=== PATIENT | male | born 1965 | race African-American/Black ===

== ENCOUNTER 2021-12-25 18:52 | Emergency (ER) | payer OTHER, SELFPAY ==
[2021-12-25 19:26] VITALS: BP 158/120; BP 172/68; PULSE 113; PULSE 126; RESP 18; TEMP 36.9; O2SAT 94; O2SAT 97; BMI 32.5
[2021-12-25 19:30] VITALS: PULSE 113
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
[2021-12-25 20:17] VITALS: BP 158/112; PULSE 94; RESP 16; TEMP 36.6; O2SAT 99
[2021-12-25] MEDS: lisinopriL 20 MG TABLET PO (20:28)
--- NOTE | 2021-12-25 20:33 | PC.NURSE ---
patient's son here to transport patient home. consulted with PA who reports patient is cleared to go if he wishes, though they would like him to remain for a little longer. patient ambulates without issue, alert and oriented on departure
--- NOTE | 2021-12-25 20:40 | PC.NURSE ---
This RN in RM 4 with Pt in Cardiac Arrest, This RN did not see this Pt.
== END 2021-12-25 20:37 | disposition left against medical advice (07) ==
PROVIDERS: Emergency Provider Internal Medicine
DX: S60.812A Abrasion of left wrist, initial encounter (principal); I10 Essential (primary) hypertension; Z79.899 Other long term (current) drug therapy; V89.2XXA Person injured in unspecified motor-vehicle accident, traffic, initial encounter; Y93.9 Activity, unspecified; Y92.410 Unspecified street and highway as the place of occurrence of the external cause; Y99.9 Unspecified external cause status
CPT/HCPCS: 99283; 99284